=== PATIENT | male | born 2000 | race Caucasian/White ===

== ENCOUNTER 2021-07-04 11:58 | Emergency (ER) | payer SELFPAY ==
--- NOTE | 2021-07-04 12:47 | PC.NURSE ---
no response from patient when called for triage at this time
== END 2021-07-04 18:27 | disposition left against medical advice (07) ==
PROVIDERS: Emergency Provider Emergency Medicine
DX: U07.1 COVID-19 (principal); R51.9 Headache, unspecified; R06.02 Shortness of breath; M54.9 Dorsalgia, unspecified